=== PATIENT | male | born 1980 | race Caucasian/White ===

== ENCOUNTER 2023-12-30 11:24 | Inpatient (IN) ==
[2023-12-30 13:30] LABS: ABS Lymphocytes 1.8 10^3/uL (1.0-4.8); ABS Monocytes 0.6 10^3/uL (0.0-1.1); ABS Neutrophils 4.2 10^3/uL (1.5-7.6); ABS Nucleated RBC 0.02 10^3/ul; Eosinophil % 0.6 %; Hemoglobin 18.2 g/dL (13.2-16.3); Lymphocyte % 27.4 %; Mean Corpuscular Hemoglobin 35.9 pg (27-33); Mean Corpuscular Hgb Conc 35.8 g/dL (31-36); Mean Corpuscular Volume 100.5 fL (80-97); Nucleated Red Blood Cells % 0.4 %/100WBC (0.0-0.8); Platelet Count 183 10^3/uL (150-450); Red Blood Count 5.08 10^6/uL (4.06-5.63); Red Cell Distribution Width 12.7 % (12-17); White Blood Count 6.6 10^3/uL (3.6-10.2)
[2023-12-30 13:35] LABS: INR 1.04 (0.83-1.13)
[2023-12-30 14:13] LABS: Albumin/Globulin Ratio 1.4 (1-3); Calcium 9.6 mg/dL (8.6-10.3); Creatinine, Serum 0.81 mg/dL (0.67-1.17); Globulin 3.6 g/dL (2-4); Magnesium 2.3 mg/dL (1.9-2.7); Potassium 3.8 mmol/L (3.5-5.0); Total Bilirubin 0.6 mg/dL (0.2-1.0); Total Protein 8.6 g/dL (6.4-8.9); eGFR CKD-EPI 113.6 (>60)
[2023-12-30] MEDS: Thiamine 100 MG/ML 2 ml VIAL 100 MG, Folic Acid IV 1 MG, Multiple Vitamin IV ADULT 10 M... IV ONE (14:29)
[2023-12-30] MEDS: Nicotine GUM 4MG FRUIT FLAVOR PO PRN (15:49)
[2023-12-30] MEDS: Lactated Ringers 1000 ml BAG 1,000 ML IV ONE (16:00)
[2023-12-30] MEDS: Nicotine PATCH 21 MG/24 HR PATCH TRANSDERM ONE (17:59)
[2023-12-30] MEDS ORDERED: LORazepam 2 mg VIAL 1 ml IV PUSH ONE (22:06)
[2023-12-30] MEDS ORDERED: Lorazepam PYXIS KEY PRN (22:06)
[2023-12-30] MEDS: diazePAM INJ CARPUJECT 5 MG/ML SYRINGE IV ONE (22:14)
[2023-12-30] MEDS ORDERED: Diazepam IV 0-15 mg dose for WAM protocol IV SCH (23:00)
[2023-12-30] MEDS ORDERED: diazePAM INJ CARPUJECT 5 MG/ML SYRINGE IV PRN (23:23)
[2023-12-31] MEDS: Ondansetron 4 mg VIAL 2 MG/ML 2 ml VIAL IV PRN (00:17)
[2023-12-31] MEDS ORDERED: diazePAM INJ CARPUJECT 5 MG/ML SYRINGE IV SCH (00:17)
[2023-12-31] MEDS: Ondansetron 4 mg VIAL 2 MG/ML 2 ml VIAL ONE (00:19)
[2023-12-31 04:12] LABS: ABS Basophils 0.1 10^3/uL (0.0-0.1); ABS Eosinophils 0.1 10^3/uL (0.0-0.5); ABS Monocytes 0.6 10^3/uL (0.0-1.1); ABS Neutrophils 4.6 10^3/uL (1.5-7.6); ABS Nucleated RBC 0.01 10^3/ul; Eosinophil % 1.5 %; Hematocrit 43.2 % (38-53); Hemoglobin 15.6 g/dL (13.2-16.3); Lymphocyte % 27.2 %; Mean Corpuscular Hemoglobin 36.3 pg (27-33); Mean Corpuscular Volume 100.8 fL (80-97); Mean Platelet Volume 7.2 fL (7.5-11.2); Nucleated Red Blood Cells % 0.1 %/100WBC (0.0-0.8); Platelet Count 164 10^3/uL (150-450); Red Blood Count 4.29 10^6/uL (4.06-5.63); Red Cell Distribution Width 12.7 % (12-17); White Blood Count 7.4 10^3/uL (3.6-10.2)
[2023-12-31 05:00] LABS: Calcium 8.9 mg/dL (8.6-10.3); Creatinine, Serum 0.83 mg/dL (0.67-1.17); Magnesium 1.6 mg/dL (1.9-2.7); Potassium 3.5 mmol/L (3.5-5.0); eGFR CKD-EPI 112.8 (>60)
[2023-12-31] MEDS: Magnesium Sulfate 2 gm BAG 2 GM/50 ML BAG ONE (05:13)
[2023-12-31] MEDS: Magnesium Sulfate 2 gm BAG 2 GM/50 ML BAG IVPB ONE (05:15)
[2023-12-31] MEDS: Potassium Chlor 20 meq TAB.ER PO ONE (05:19)
[2023-12-31] MEDS: Multivitamins/Minerals TAB PO SCH (09:18)
[2023-12-31] MEDS: Thiamine 100 MG/ML 2 ml VIAL 500 MG in NS 0.9% 250 ml 250 ML IV ONE (10:37)
[2023-12-31] MEDS: Nicotine PATCH 21 MG/24 HR PATCH TRANSDERM SCH (17:35)
[2024-01-01 06:26] LABS: ABS Eosinophils 0.2 10^3/uL (0.0-0.5); ABS Lymphocytes 1.3 10^3/uL (1.0-4.8); ABS Monocytes 0.8 10^3/uL (0.0-1.1); ABS Neutrophils 4.3 10^3/uL (1.5-7.6); Eosinophil % 3.2 %; Hemoglobin 15.6 g/dL (13.2-16.3); Lymphocyte % 19.4 %; Mean Corpuscular Hemoglobin 36.4 pg (27-33); Mean Corpuscular Hgb Conc 36.2 g/dL (31-36); Mean Corpuscular Volume 100.4 fL (80-97); Mean Platelet Volume 7.2 fL (7.5-11.2); Nucleated Red Blood Cells % 0.1 %/100WBC (0.0-0.8); Platelet Count 160 10^3/uL (150-450); Red Blood Count 4.28 10^6/uL (4.06-5.63); Red Cell Distribution Width 12.6 % (12-17); White Blood Count 6.7 10^3/uL (3.6-10.2)
[2024-01-01 06:52] LABS: Creatinine, Serum 0.83 mg/dL (0.67-1.17); Magnesium 2.1 mg/dL (1.9-2.7); Potassium 3.8 mmol/L (3.5-5.0); eGFR CKD-EPI 112.8 (>60)
[2024-01-01] MEDS: Nicotine PATCH 21 MG/24 HR PATCH TRANSDERM SCH (11:17)
[2024-01-02 05:33] LABS: ABS Basophils 0.1 10^3/uL (0.0-0.1); ABS Eosinophils 0.2 10^3/uL (0.0-0.5); ABS Lymphocytes 1.7 10^3/uL (1.0-4.8); ABS Monocytes 0.7 10^3/uL (0.0-1.1); ABS Neutrophils 3.6 10^3/uL (1.5-7.6); ABS Nucleated RBC 0.01 10^3/ul; Eosinophil % 3.2 %; Hematocrit 44.7 % (38-53); Hemoglobin 15.9 g/dL (13.2-16.3); Lymphocyte % 27.4 %; Mean Corpuscular Hemoglobin 35.9 pg (27-33); Mean Corpuscular Hgb Conc 35.6 g/dL (31-36); Mean Corpuscular Volume 100.9 fL (80-97); Mean Platelet Volume 7.2 fL (7.5-11.2); Nucleated Red Blood Cells % 0.1 %/100WBC (0.0-0.8); Platelet Count 165 10^3/uL (150-450); Red Blood Count 4.43 10^6/uL (4.06-5.63); Red Cell Distribution Width 12.4 % (12-17); White Blood Count 6.3 10^3/uL (3.6-10.2)
[2024-01-02 05:48] LABS: Albumin 4.2 g/dL (3.2-5.2); Albumin/Globulin Ratio 1.4 (1-3); Calcium 9.4 mg/dL (8.6-10.3); Creatinine, Serum 0.85 mg/dL (0.67-1.17); Magnesium 2.1 mg/dL (1.9-2.7); Total Protein 7.2 g/dL (6.4-8.9)
[2024-01-03 06:15] LABS: Hematocrit 47.9 % (38-53); Hemoglobin 16.8 g/dL (13.2-16.3); Mean Corpuscular Hemoglobin 36.1 pg (27-33); Mean Corpuscular Hgb Conc 35.1 g/dL (31-36); Mean Corpuscular Volume 102.8 fL (80-97); Red Blood Count 4.66 10^6/uL (4.06-5.63); Red Cell Distribution Width 12.6 % (12-17); White Blood Count 6.8 10^3/uL (3.6-10.2)
[2024-01-03 07:06] LABS: ABS Eosinophils 0.2 10^3/uL (0.0-0.5); ABS Lymphocytes 1.9 10^3/uL (1.0-4.8); ABS Monocytes 0.7 10^3/uL (0.0-1.1); ABS Nucleated RBC 0.06 10^3/ul; Eosinophil % 2.9 %; Lymphocyte % 27.2 %; Mean Platelet Volume 7.9 fL (7.5-11.2); Nucleated Red Blood Cells % 0.9 %/100WBC (0.0-0.8); Platelet Count 135 10^3/uL (150-450)
[2024-01-03 07:25] LABS: Anion Gap 8 mmol/L (2-16); Blood Urea Nitrogen 11 mg/dL (6-24); CO2 Carbon Dioxide 24 mmol/L (22-32); Calcium 9.4 mg/dL (8.6-10.3); Chloride 107 mmol/L (101-111); Creatinine, Serum 0.87 mg/dL (0.67-1.17); Glucose 98 mg/dL (70-100); Magnesium 2.1 mg/dL (1.9-2.7); Sodium 139 mmol/L (135-145); eGFR CKD-EPI 111.2 (>60)
[2024-01-03 10:22] VITALS: BP 123/92
== END 2024-01-03 10:45 | disposition home or self-care (01) | DRG 775 ==
LOC: ED 11:24 → ICU 11:24 → OBSVTOIN 23:12 → SUATTDRO 23:12 → MED 23:38
PROVIDERS: ADMIT Internal Medicine Critical Care Medicine; ATTEND Internal Medicine